=== PATIENT | female | born 1985 ===

== ENCOUNTER 2017-11-17 06:50 | Inpatient (IN) | payer OTHER ==
[~2017-11-17] VITALS: Ht 157.5 cm; Wt 73.5 kg
[2017-11-17] MEDS ORDERED: PRENATAL 19 TA1 EAC1 PO (08:56)
== END 2017-11-20 11:28 | DRG 766 ==
LOC: OB/GYN 06:50 → LDR 06:50 → O/R 21:33 → OB/GYN 22:27
PROVIDERS: Obstetrics & Gynecology
PROC: 0UL70ZZ Occlusion of Bilateral Fallopian Tubes, Open Approach (ICD-10-PCS; 2017-11-17)
PROC: 10907ZC Drainage of Amniotic Fluid, Therapeutic from Products of Conception, Via Natural or Artificial Opening (ICD-10-PCS; 2017-11-17)
PROC: 4A033R1 Measurement of Arterial Saturation, Peripheral, Percutaneous Approach (ICD-10-PCS; 2017-11-17)
PROC: 4A1HXCZ Monitoring of Products of Conception, Cardiac Rate, External Approach (ICD-10-PCS; 2017-11-17)
PROC: 10D00Z1 Extraction of Products of Conception, Low, Open Approach (ICD-10-PCS; principal; 2017-11-17 19:00)
DX: O62.1 Secondary uterine inertia (principal); Z3A.39 39 weeks gestation of pregnancy; Z37.0 Single live birth; Z30.2 Encounter for sterilization